=== PATIENT | male | born 1990 | race Asian ===

== ENCOUNTER 2023-05-16 13:50 | Emergency (ER) | payer BC ==
[~2023-05-16] VITALS: Ht 157.5 cm; Wt 72.6 kg
[2023-05-16 14:15] VITALS: BP 151/99; PULSE 75; RESP 18; TEMP 97; O2SAT 98
[2023-05-16] MEDS ORDERED: KETOROLAC 30 MG/ML VIAL IM ONE (15:20)
[2023-05-16] MEDS ORDERED: BACITRACIN OINT 500 UNITS/GM PKT TP ONE (16:25)
[2023-05-16] MEDS ORDERED: LIDOCAINE MPF 1% 10 MG/ML VIAL INJ ONE (16:25)
[2023-05-16] MEDS ORDERED: CEPH-588 PO (16:28)
[2023-05-16] MEDS ORDERED: ACET-8905 PO (16:28)
[2023-05-16] MEDS ORDERED: IBUP-2213 PO (16:28)
[2023-05-16 18:14] VITALS: BP 135/89; PULSE 75; RESP 18; TEMP 98; O2SAT 99
== END 2023-05-16 18:14 | disposition home or self-care (01) ==
LOC: MED 13:50
DX: S61.011A Laceration without foreign body of right thumb without damage to nail, initial encounter (principal); W23.0XXA Caught, crushed, jammed, or pinched between moving objects, initial encounter; Y93.89 Activity, other specified; Y92.89 Other specified places as the place of occurrence of the external cause; Y99.8 Other external cause status
CPT/HCPCS: 12001; 73140; 90471; 90715; 96372; 99284; J1885; J2001